=== PATIENT | female | born 1960 | race Caucasian/White ===

== ENCOUNTER 2016-11-16 09:16 | Day surgery (SDC) | payer BC, OTHER ==
[2016-11-11 15:07] VITALS: BMI 33.4
[~2016-11-16 09:16] MED LIST: LACTATED RINGERS 1,000 ML IV SCH; LIDOCAINE 1% 20 ML VIAL (10MG/ML) FOR IV START INTRADERMA PRN
[2016-11-16 09:37] VITALS: TEMP 97.3
[2016-11-16] MEDS ORDERED: PROPOFOL 10 MG/ML 20 ML VIAL IV ONE (10:02)
--- NOTE | 2016-11-16 10:04 | P.GSHP ---
History of Present Illness H&P Date: 11/16/16 Chief Complaint: Screening colonoscopy This is a 56-year-old female referred from Cait Corley PA-C. Patient resents today for screening colonoscopy. - Constitutional Constitutional: Reports as per HPI Past Medical History Past Medical History: Hyperlipidemia Additional Past Medical History / Comment(s): RLS History of Any Multi-Drug Resistant Organisms: None Reported Past Surgical History: Section, Orthopedic Surgery, Uterine Ablation Additional Past Surgical History / Comment(s): C-SEC X 4. COLONOSCOPY. [facility] Past Anesthesia/Blood Transfusion Reactions: No Reported Reaction Past Psychological History: Depression, Panic Disorder Smoking Status: Current every day smoker Past Alcohol Use History: None Reported Past Drug Use History: None Reported - Past Family History Mother Family Medical History: No Reported History Medications and Allergies Home Medications Medication Instructions Recorded Confirmed Type Biotin 5 mg PO DAILY 11/11/16 11/16/16 History Milk Thistle 150 mg PO DAILY 11/11/16 11/16/16 History Simvastatin [Zocor] 80 mg PO HS 11/11/16 11/16/16 History Zolpidem [Ambien] 10 mg PO HS PRN 11/11/16 11/16/16 History buPROPion HCL [Wellbutrin SR] 150 mg PO HS 11/11/16 11/16/16 History busPIRone HCL 10 mg PO BID 11/11/16 11/16/16 History clonazePAM [KlonoPIN] 0.5 mg PO DAILY 11/11/16 11/16/16 History lamoTRIgine [LaMICtal] 100 mg PO HS 11/11/16 11/16/16 History rOPINIRole HCL [Requip] 0.5 mg PO HS 11/11/16 11/16/16 History Allergies Allergy/AdvReac Type Severity Reaction Status Date / Time Sulfa (Sulfonamide Allergy HAD EYE Verified 11/16/16 09:32 Antibiotics) DROPS-CAUSED BLINDNESS Surgical - Exam Vital Signs Temp Pulse Resp BP Pulse Ox 97.3 F L 104 H 18 108/71 95 11/16/16 09:36 11/16/16 09:36 11/16/16 09:36 11/16/16 09:36 11/16/16 09:36 - General well developed, no distress - Eyes PERRL - ENT normal pinna - Neck no masses - Respiratory normal expansion - Cardiovascular Rhythm: regular - Abdomen Abdomen: soft, non tender Assessment and Plan Plan: We'll perform screening colonoscopy.
--- NOTE | 2016-11-16 10:22 | P.OP ---
Date of Procedure: 11/16/16 Preoperative Diagnosis: Screening colonoscopy Postoperative Diagnosis: Rectal polyp Procedure(s) Performed: Colonoscopy Anesthesia: MAC Surgeon: Jorge Soto Pathology: other (Rectal polyp) Condition: stable Disposition: PACU Description of Procedure: The patient's placed on the endoscopy table in the lateral position. She received IV sedation. Digital rectal exam was performed which revealed mild external hemorrhoids. The flexible colonoscope was then placed patient anus passed throughout the entire colon. The ileocecal valve was visualized. Cecum , ascending transverse descending and sigmoid colon appeared normal. In the rectum there was a small polyp seen the polyp was removed with the biopsy forcep. Scope was then withdrawn for patient.
[2016-11-16 10:26] VITALS: RESP 16
[2016-11-16 10:45] VITALS: BP 115/78; PULSE 83
== END 2016-11-16 11:02 | disposition home or self-care (01) ==
LOC: ORWHC2ENDO 09:16
PROVIDERS: ATTEND Surgery
DX: Z12.11 Encounter for screening for malignant neoplasm of colon (principal); K62.1 Rectal polyp; K64.4 Residual hemorrhoidal skin tags; F17.200 Nicotine dependence, unspecified, uncomplicated; E78.5 Hyperlipidemia, unspecified; G25.81 Restless legs syndrome; F41.0 Panic disorder [episodic paroxysmal anxiety]; F31.9 Bipolar disorder, unspecified; Z79.899 Other long term (current) drug therapy; Z88.2 Allergy status to sulfonamides
CPT/HCPCS: 88305; 45380; J2704

== ENCOUNTER → 2016-12-16 | Day surgery (SDC) | payer OTHER ==
[~2016-12-16] MED LIST changes: +ALPRAZolam 0.25 MG TAB ONE; +BACITRACIN OINT 1 EACH PACKET TOPICAL ONE; -LACTATED RINGERS 1,000 ML IV SCH; -LIDOCAINE 1% 20 ML VIAL (10MG/ML) FOR IV START INTRADERMA PRN; +LIDOCAINE 1% INJ 10MG/ML (20 ML MDV) ONE
--- NOTE | 2016-12-16 12:28 | MM ---
EXAMINATION TYPE: MG stereo VAD BX LT DATE OF EXAM: 12/16/2016 COMPARISON: Outside mammogram November 06, 2016 and older studies CLINICAL HISTORY: Suspicious group of calcifications left breast TECHNIQUE: Stereotactic guided core biopsy of left breast with clip placement and follow-up two-view mammogram. FINDINGS: The procedure of stereotactic guided core biopsy was explained to the patient. Benefits, alternatives, and risks were discussed. An informed consent was then obtained. Case is difficult due to marked posterior location of calcifications. I performed the localization, then surgeon, Dr. Soto performed the remainder of the procedure. A vacuum assisted biopsy gun was used to obtain multiple core samples. The patient tolerated the procedure well without any immediate complication. The patient was kept in the radiology department for short stay after the procedure and then discharged home in stable condition. Targeted calcifications are identified in specimen mammogram. Post biopsy mammogram shows the clip to appear in satisfactory position relative to the targeted area of concern on the preprocedure images. Some residual calcifications are present. IMPRESSION: SUCCESSFUL, UNCOMPLICATED STEREOTACTIC GUIDED CORE BIOPSY OF AREA OF CONCERN IN THE LEFT BREAST, FULL PATHOLOGY RESULTS TO FOLLOW. Intermediate index of suspicion noted at time of procedure. Pathology Results: Benign BREAST, LEFT, STEREOTACTIC ORE BIOPSY: BENIGN BREAST WITH PROMINENT BACKGROUND ADIPOSE TISSUE DEMONSTRATING FIBROSIS, ADENOSIS AND FIBROADENOMATOUS HYPERPLASIA WITH HYALINIZATION AND CALCIFICATION; PENDING DEEPER SECTIONS AND X- RAY OF BLOCK TO CONFIRM ALL AREA OF CALCIFICATION HAVE BEEN IDENTIFIED. Recommendation Follow up mammogram of the left breast in 6 months. MTDD
== END ==
LOC: RADMAMWWP 09:15
PROVIDERS: ATTEND Surgery
DX: N60.32 Fibrosclerosis of left breast (principal); N60.22 Fibroadenosis of left breast; N62 Hypertrophy of breast; R92.0 Mammographic microcalcification found on diagnostic imaging of breast
CPT/HCPCS: 88305; 19081; A4648; J2001